=== PATIENT | female | born 1965 | race Caucasian/White ===

== ENCOUNTER 2022-03-29 13:43 | Emergency (ER) | payer SELFPAY ==
[~2022-03-29] VITALS: Ht 172.7 cm; Wt 71.0 kg
[2022-03-29 13:49] VITALS: BP 115/81
[2022-03-29 14:00] VITALS: BP 134/77
[2022-03-29 14:30] VITALS: BP 118/85
[2022-03-29 14:30] LABS: HEMATOCRIT 42.4 % (37.0-47.0); HEMOGLOBIN 13.5 g/dl (12.0-16.0); IMMATURE GRANULOCYTES 0.5 % (0.0-5.0); MEAN CELL VOLUME 93.2 fL CALC (80.0-100.0); MEAN CORPUSCULAR HGB 29.7 pG CALC (26.0-32.0); MEAN CORPUSCULAR HGB CONC 31.8 g/dL CAL (32.0-36.0); NEUT# 8.9 thou/uL (2.00-7.15); RED BLOOD COUNT 4.55 mill/uL (4.20-5.60); RED CELL DISTRI WIDTH 12.7 % (11.5-15.5)
[2022-03-29 14:42] LABS: ALBUMIN 3.9 g/dL (3.2-5.0); ALKALINE PHOSPHATASE 98 u/l (38-126); ANION GAP 11 (6-22 (CALC)); BILIRUBIN, TOTAL 0.5 mg/dL (0.0-1.4); BUN 13 mg/dL (7-17); BUN/CREATININE RATIO 19 (12-20 (CALC)); CARBON DIOXIDE 25 mmol/l (22-30); CHLORIDE 103 mmol/l (95-108); CREATININE 0.7 mg/dL (0.5-1.0); GFR FOR AFR.AMER. > 60 ML/MIN (>=60 (CALC)); GFR OTHER RACES > 60 ML/MIN (>=60 (CALC)); POTASSIUM 3.5 mmol/l (3.5-5.1); SGOT/AST 32 u/l (14-36); SODIUM 135 mmol/l (137-146); TOTAL PROTEIN 7.4 g/dL (6.3-8.2)
[2022-03-29 15:00] VITALS: BP 113/80
[2022-03-29 15:30] VITALS: BP 111/76
[2022-03-29] MEDS ORDERED: ZYRTEC10 MG PO (15:59)
[2022-03-29] MEDS ORDERED: MEDDOSEPAK PO (15:59)
[2022-03-29] MEDS ORDERED: ZPAK PO (15:59)
[2022-03-29 16:00] VITALS: BP 118/79
== END 2022-03-29 16:30 | disposition home or self-care (01) | DRG 153 ==
LOC: ED 13:43
PROVIDERS: Nurse Practitioner
DX: J06.9 Acute upper respiratory infection, unspecified (principal); F17.210 Nicotine dependence, cigarettes, uncomplicated; Z20.822 Contact with and (suspected) exposure to COVID-19